=== PATIENT | female | born 1950 | race Caucasian/White ===

== ENCOUNTER 2020-10-24 14:29 | Emergency (ER) | payer OTHER ==
[~2020-10-24] VITALS: Ht 167.6 cm; Wt 97.5 kg
[~2020-10-24 14:29] MED LIST: AMOXICILLIN875 MG PO; GYNODIOL1 MG PO; LOPRESSOR 50 MG50 M1; LOPRESSOR50 PO; LOVASTAT20 PO; OMEPRAZOLE 20 M20 M1 PO; PROVERA2.5 MG PO; SPIRONOLACTONE25 M1 PO
[2020-10-24] MEDS ORDERED: ESCITALOPRA5 MG/5 ML PO (14:36)
[2020-10-24 15:37] LABS: ABSOLUTE BASOPHILS 0.1 thou/uL (0.0-0.2); ABSOLUTE LYMPHOCYTES 1.1 thou/uL (0.8-5.3); ABSOLUTE MONOCYTES 0.3 thou/uL (0.0-1.2); ABSOLUTE NEUTROPHILS 7.5 thou/uL (1.6-8.1); BASOPHILS 0.7 %; EOSINOPHILS 0.4 %; HEMOGLOBIN 14.5 gm/dL (12.0-15.0); LYMPHOCYTES 12.7 %; MCH 30.5 pg (26.0-34.0); MCHC 33.7 g/dL (28.0-37.0); MCV 90.4 fL (80.0-100.0); MONOCYTES 3.1 %; MPV 8.8 fl. (7.2-11.1); NUCLEATED RBCS 0 /100WBC; PLATELET COUNT* 199 thou/uL (150-400); POLYS 83.1 %; RBC 4.76 mil/uL (4.20-5.00); RDW-CV 13.7 % (10.5-14.5)
[2020-10-24 15:41] LABS: CALCIUM 9.4 mg/dL (8.5-10.1); CREATININE 0.9 mg/dL (0.6-1.3); POTASSIUM 4.2 mmol/L (3.5-5.1)
[2020-10-24 15:45] LABS: ALBUMIN 3.7 g/dL (3.4-5.0); TOTAL BILIRUBIN 0.5 mg/dL (<0.1-1.0); TOTAL PROTEIN 7.9 g/dL (6.4-8.2)
[2020-10-24 16:59] LABS: ESR (SEDRATE) 20 mm/hr (0-30)
[2020-10-24] MEDS ORDERED: ACETAZOLAMIDE250 M1 PO (17:45)
[2020-10-24 18:30] VITALS: BP 127/64
== END 2020-10-24 18:30 | disposition home or self-care (01) ==
LOC: M.ERS 14:29
PROVIDERS: Physician Assistant
DX: H40.051 Ocular hypertension, right eye (principal); R51.9 Headache, unspecified; R11.10 Vomiting, unspecified; I10 Essential (primary) hypertension; K21.9 Gastro-esophageal reflux disease without esophagitis; Z98.890 Other specified postprocedural states; Z86.73 Personal history of transient ischemic attack (TIA), and cerebral infarction without residual deficits; Z79.899 Other long term (current) drug therapy; Z88.1 Allergy status to other antibiotic agents; Z20.828 Contact with and (suspected) exposure to other viral communicable diseases